=== PATIENT | male | born 1985 | race Caucasian/White ===

== ENCOUNTER 2021-05-20 10:45 | Emergency (ER) | payer SELFPAY ==
[~2021-05-20] VITALS: Ht 170.2 cm; Wt 77.1 kg
[2021-05-20 10:55] VITALS: BP 108/76
[2021-05-20] MEDS ORDERED: LOPE1LIQ56 PO (11:05)
[2021-05-20] MEDS ORDERED: ACET-2605 PO (11:05)
[2021-05-20] MEDS ORDERED: LOPERAMIDE HCL (2 MG CAP) 2 MG CAPSULE ONE (11:10)
[2021-05-20] MEDS ORDERED: ACETAMINOPHEN ES 500 MG TABLET ONE (11:10)
[2021-05-20] MEDS ORDERED: ACETAMINOPHEN ES 500 MG TABLET PO ONE (11:30)
[2021-05-20] MEDS ORDERED: LOPERAMIDE HCL (2 MG CAP) 2 MG CAPSULE PO ONE (11:30)
== END 2021-05-20 11:23 | disposition home or self-care (01) ==
LOC: ER 10:50
DX: R19.7 Diarrhea, unspecified (principal); R51.9 Headache, unspecified; Z20.822 Contact with and (suspected) exposure to COVID-19
CPT/HCPCS: 87426; 99283; C9803